=== PATIENT | female | born 1930 | race Caucasian/White ===

== ENCOUNTER 2017-06-17 11:46 | Observation (INO) | payer OTHER ==
[~2017-06-17] VITALS: Ht 160 cm; Wt 59.4 kg
[~2017-06-17 11:46] MED LIST: ALBUTEROL17 GM IH; ASMANEX HFA13 G1 IH; ASMANEX TW200 MICRO1 IH; CALTRATE 600 +1 EAC1 PO; CALTRATE 600600 MG PO; CENTRUM SILVER1 EAC3 PO; CENTRUM SILVER1 EAC4 PO; COLACE100 MG PO; DIGOX125 MCG PO; DIGOXIN125 MCG PO; FISH OIL 1,0001 EAC7 PO; LANOXIN,DIG0.0625 MG PO; LEVOTHROID,S0.075 MG PO; LEVOTHYROXINE100 MCG PO; LEVOTHYROXINE88 MCG PO; LORAZEPAM1 MG PO; MIRALAX17 GM PO; OMEPRAZOLE20 MG PO; OMEPRAZOLE40 M1 PO; PERCOCET 5/31 TABLET PO; PRESERVISION T1 EACH PO; PREVACID15 MG PO; PROVENTIL HFA6.7 GM IH; SIMVASTATIN10 MG PO; SPIRIVA RESPIMAT4 G1 IH; SPIRIVA1 INHALATI IH; TYLENOL EXTRA500 MG PO; TYLENOL PM PO; TYLENOL325 M1 PO; VERAPAMIL ER100 MG PO; VERAPAMIL HCL120 M2 PO; VERAPAMIL HCL240 MG PO; XARELTO15 MG PO; ZETIA10 MG PO
[2017-06-17 12:14] LABS: HEMATOCRIT 37.4 % (36.0-46.0); MCH 30.2 PG (29.0-34.0); MCHC 32.6 G/DL (30.0-36.0); MCV 92.6 FL (83-99); MEAN PLAT.VOLUME 11.4 uM^3 (9.5-12.4); PLATELET COUNT 180 K/uL (156-360); RBC DIS.WIDTH-CV 13.6 % (11.8-14.6); RBC DIS.WIDTH-SD 46.5 % (39-53); RED BLOOD COUNT 4.04 M/uL (3.80-5.20)
[2017-06-17 12:32] LABS: CHLORIDE 104 mEq/L (99-109); POTASSIUM 4.3 mEq/L (3.7-5.4); SODIUM 139 mEq/L (136-147)
[2017-06-17 12:34] LABS: GLUCOSE 94 mg/dL (70-99)
[2017-06-17 12:35] LABS: ANION GAP 10 MEQ/L (2-14)
[2017-06-17 12:38] LABS: GFR ESTIMATE (CALCULATED) > 59 mL/min/; UREA NITROGEN (BUN) 22 mg/dL (9-23)
[2017-06-17 12:44] LABS: TROP-I INTERPRETATION NEGATIVE; TROPONIN-I < 0.01 ng/mL (0.0-0.30)
[2017-06-17] MEDS ORDERED: TRAZODONE HCL50 MG PO (14:31)
[2017-06-17 15:16] VITALS: BP 132/60
[2017-06-17 16:04] VITALS: BP 135/85
[2017-06-17 16:05] VITALS: BP 142/93
[2017-06-17 19:12] VITALS: BP 130/71
[2017-06-17 20:09] LABS: TROP-I INTERPRETATION NEGATIVE; TROPONIN-I < 0.01 ng/mL (0.0-0.30)
[2017-06-17 22:51] LABS: ADD MIUA? NO; BILIRUBIN NEGATIVE; BLOOD NEGATIVE; COLOR STRAW ((YELLOW)); GLUCOSE (STRIP) NEGATIVE; KETONES NEGATIVE; LEUKOCYTES NEGATIVE; NITRITE NEGATIVE; PROTEIN (STRIP) NEGATIVE; SPECIFIC GRAVITY 1.019 (1.000-1.030); UCUL ADDED? NO; UROBILINOGEN 0.2 MG/DL (0.2-1.0)
[2017-06-17 23:00] VITALS: BP 131/61
[2017-06-18 03:45] VITALS: BP 128/60
[2017-06-18 05:51] LABS: TROP-I INTERPRETATION NEGATIVE; TROPONIN-I < 0.01 ng/mL (0.0-0.30)
[2017-06-18 08:00] VITALS: BP 131/59
[2017-06-18 11:42] VITALS: BP 127/61
== END 2017-06-18 13:49 | disposition home or self-care (01) ==
LOC: EME 11:46 → EDOF 13:34 → 5WEST 13:34 → ENRESERV 13:36 → 5WEST 14:54
PROVIDERS: Family Medicine
DX: R07.89 Other chest pain (principal); I48.2 Chronic atrial fibrillation; Z79.01 Long term (current) use of anticoagulants; R94.31 Abnormal electrocardiogram [ECG] [EKG]; I10 Essential (primary) hypertension; E78.5 Hyperlipidemia, unspecified; J44.9 Chronic obstructive pulmonary disease, unspecified; E03.9 Hypothyroidism, unspecified; K21.9 Gastro-esophageal reflux disease without esophagitis; Z66 Do not resuscitate
CPT/HCPCS: 71020; 71275; 80048; 81003; 84484; 85027; 93005; 94640; 94640 76; 99281; 99284; G0378